=== PATIENT | male | born 1990 | race African-American/Black ===

== ENCOUNTER 2020-03-05 20:52 | Emergency (ER) | payer MEDICAID, OTHER ==
[~2020-03-05] VITALS: Ht 182.9 cm; Wt 118.0 kg
[2020-03-05 20:54] VITALS: BP 138/78
[2020-03-05] MEDS ORDERED: LIDOCAINE HCL/PF 1% 10 MG/ML 5ML VIAL IJ ONE (21:15)
[2020-03-05] MEDS ORDERED: ACETAMINOPHEN 325MG TABLET PO ONE (21:30)
== END 2020-03-05 22:57 | disposition home or self-care (01) ==
LOC: ER 20:52
DX: S91.311A Laceration without foreign body, right foot, initial encounter (principal); W25.XXXA Contact with sharp glass, initial encounter; Y93.89 Activity, other specified; Y92.9 Unspecified place or not applicable
CPT/HCPCS: 12004; 73630; 99283; J3490

== ENCOUNTER 2020-03-18 03:42 | Emergency (ER) | payer MEDICAID ==
[~2020-03-18] VITALS: Ht 182.9 cm; Wt 114.0 kg
[2020-03-18 07:18] VITALS: BP 128/82
== END 2020-03-18 07:21 | disposition home or self-care (01) ==
LOC: ER 03:42
DX: S91.312D Laceration without foreign body, left foot, subsequent encounter (principal); Z48.02 Encounter for removal of sutures; X58.XXXD Exposure to other specified factors, subsequent encounter
CPT/HCPCS: 99281; 99283

== ENCOUNTER 2022-12-01 03:26 | Emergency (ER) | payer MEDICAID ==
[~2022-12-01] VITALS: Ht 182.9 cm; Wt 109.0 kg
[2022-12-01 04:33] VITALS: BP 111/57
[2022-12-01] MEDS ORDERED: HYDROCODONE/ACETAMINOPHEN 5/325MG TABLET PO STA (04:33)
[2022-12-01] MEDS ORDERED: LIDOCAINE HCL/EPINEPHRINE 1%-EPI 1:100,000 20 ML VIAL INFIL ONE (04:45)
[2022-12-01] MEDS ORDERED: BACITRACIN ZINC OINT UDPKT TOP ONE (04:45)
[2022-12-01] MEDS ORDERED: TETANUS, DIPHTHERIA, PERTUSSIS VAC/PF 0.5ML (>10YR OLD) IM ONE (04:45)
[2022-12-01] MEDS ORDERED: IBUP-2029 PO (06:19)
[2022-12-01] MEDS ORDERED: BO1 TP (06:28)
[2022-12-01] MEDS ORDERED: LIDOCAINE HCL 1%/EPI 1:200,000 30 ML VIAL IJ NR (06:30)
== END 2022-12-01 07:27 | disposition home or self-care (01) ==
LOC: ER 03:26
DX: S01.01XA Laceration without foreign body of scalp, initial encounter (principal); S10.91XA Abrasion of unspecified part of neck, initial encounter; Y08.89XA Assault by other specified means, initial encounter; Y93.89 Activity, other specified; Y92.89 Other specified places as the place of occurrence of the external cause; Y99.8 Other external cause status
CPT/HCPCS: 70450; 90471; 90715; 99284; J3490; Z7610